=== PATIENT | female | born 1975 | race Caucasian/White ===

== ENCOUNTER 2018-07-01 15:00 | Outpatient (RCR) ==
--- NOTE | 2018-06-28 08:53 | RS.OPPTEV2 ---
Date of Note: 06/27/18 Visit #: 1 Date of Evaluation: 06/27/18 Payer Source: Medicaid Treatment Diagnosis: Left knee pain History of Condition/Mechanism of Injury:: Patient reports progressive left knee pain. History includes club foot and constriction band syndrome at and multiple surgeries to the LE's. States pain had recently gotten bad over the last four months. Prior Level of Function.....Patient was independent with: ADL's, Self Care, Work /Vocation, Caregiving, Ambulation/Mobility, Community Integration/Access Functional Limitations: Standing, Squatting, Ambulation, Community Access/ Integration Current Subjective/complaints:: Patient reports progressive left knee pain. Reports pain in the knee and ankle of the left LE. During ambulation, patient states the left knee and ankle feel like they are seperating and then come back together. 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 States left LE is shorter than the right. She decribes left knee pain at rest, with weight bearing, and it will also wake her at night. 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 She reports increased pain with activity. Treatment Side (optional): Left Medical History Surgical History Comments:: Repair of congential club foot left. C clamps to the right LE to inhibit growth ( worked there way out) Hx Home Medications: Losartan,mobic,asprin Patient's Goals: Her goal is to get some relief of left knee pain. Pain Assessment - Pain Description Pain Location: Left leg, knee/ankle Current Pain Intensity: 4/10 Worst Pain Intensity: 10/10 Functional Outcome Measure LE Functional Scale: 43 (43/80=46% impairment) - G Codes & Severity Modifier G Codes & Modifier: NA Source of G Code score: NA Observation - Observation Inspection: right hand with defects from congential constriction band syndrome. Left LE is shorter in length compared to the right. Left foot is significant smaller and narrow compared to the right foot. In standing, demonstrates valgus of the ankle joint. Bilateral LE's demonstrate healed incisions from past surgeries. Gait - Gait Pattern Gait Comments: Patient ambulates without an assistive device. Demonstrates decreased stance on the Left LE. Demonstrates absent push off at terminal stance phase on the left LE. Patient vaults on the right LE. - Left Knee ROM Left Knee Extension: full extension Left Knee Flexion: 104 (degrees AROM) Knee ROM Limitations: Soft Tissue Tightness, Pain - Right Knee ROM Right Knee Extension: full extension Right Knee Flexion: 124 (degrees AROM) - Left Knee Strength Left Knee Extension: 4 Good Left Knee Flexion: 4 Good Comments: Left hip 4+/5 - Right Knee Strength Right Knee Extension: 5 Normal Right Knee Flexion: 5 Normal Comments: right hip 4+/5 - Left Ankle ROM Left DF with Knee extension: to neutral Left Plantar Flexion: 20 (degrees AROM) Left Eversion: 5 (degrees AROM) Left Inversion: 5 (degrees AROM) Left Ankle/Foot ROM Limitations: Soft Tissue Tightness, Muscle Weakness - Right Ankle ROM Right DF with Knee extension: 15 degrees Right Plantarflexion: 50 (degrees AROM) - Left Ankle Strength Left Dorsiflexion: 4- Good- Left Plantar flexion: 3+ Fair+ Left Eversion: 3+ Fair+ Left Inversion: 3+ Fair+ - Right Ankle Strength Right Dorsiflexion: 5 Normal Right Plantarflexion: 5 Normal Right Eversion: 5 Normal Right Inversion: 5 Normal Palpation Comments:: Patient reports no specific point of pain. No tenderness with palpation or compression to the patella. Also no tenderness with palpation along the joint line or posterior aspect of the knee joint. Demonstrates no palpable swelling. Sensation - Sensation Right Lower Extremity: Intact/Normal Left Lower Extremity: Impaired Comments: Describes absent sensation to light touch or cold/hot, starting at the incision that is approximately 2 inches below the joint line, and extending to the toes. Reports intact sensation to deep pressure. Additional Comments: Additional Comments: SLR in supine to 70 Degrees bilaterally. Interventions - Exercise/Activities/Manual Therapy Exercises/Activities: None given today. Discussed leg length difference and the need for her to have it addressed. Patient demonstrates understanding. Manual Therapy: NA - Charges Timed Code Treatment Minutes: 0 mins Total Treatment Time: 48 mins Procedures billed for this date of service:: EVAL Medium EVALUATION COMPLEXITY LEVEL EVALUATION COMPLEXITY LEVEL: HISTORY: Medium (Hx congenital club foot & constriction band syndrome, multiple sx's to both knees and left ankle, leg length discrepancy), EXAM OF BODY SYSTEMS: Medium, CLINICAL PRESENTATION: Medium , CLINICAL DECISION MAKING: Medium Assessment Assessment: Patient presents to therapy with a diagnosis of left knee osteoarthritis. She reports progressive knee and ankle pain. She exhibits weakness in the left leg and decreased AROM of knee flexion. She also exhibits hypomobility of the left ankle joint, which has to be compensated for in the left knee and hip. She displays a significant leg length discrepancy, with the left LE being shorter. She displayed understanding of the importance of addressing the discrepancy. Stretching and joint mobilization to the left knee and ankle should improve mobility. Strengthening exercises will help with joint stability and may decrease her pain with activity. Patient Education: Education of diagnosis, Body/Joint mechanics, Home Exercise Program, Home Safety, Activity Modification, Education of Plan of Care Rehab Potential: Good Short Term Goals Goal #1: Patient independent and compliant in HEP. Goal to be met by: 07/11/18 Goal #2: Left knee active flexion to 110 degrees. Goal to be met by: 07/11/18 Goal #3: Left knee strength 4+/5. Goal to be met by: 07/11/18 Goal #4: Left ankle DF to 10 degrees. Goal to be met by: 07/11/18 Intermediate Goals Goal #1: Pt knows HEP and to continue ex's to maintain level of function at D/C. Goal to be met by: 08/01/18 Goal #2: Score on LE functional scale improved to <30% impairment. Goal to be met by: 08/01/18 Goal #3: Patient to report minimal left knee pain with activity and rest. Goal to be met by: 08/01/18 Plan - Treatment to be Provided Procedures: Therapeutic Exercises, Therapeutic Activity, Manual Therapy (Joint mobilizations), Patient Education Modalities: Ultrasound/Phonophoresis, Cryotherapy, Hot Packs - Treatment Plan Frequency: 3 X week Duration: 4 weeks ORDER # VISITS AND/OR THROUGH DATE: 08/01/18 - Treatment Code (1) Left knee pain Code(s): M25.562 - PAIN IN LEFT KNEE Qualifiers: Chronicity: acute Qualified Code(s): M25.562 - Pain in left knee (2) Gait abnormality Code(s): R26.9 - UNSPECIFIED ABNORMALITIES OF GAIT AND MOBILITY Comments: R26.9 (3) Leg length discrepancy Code(s): M21.70 - UNEQUAL LIMB LENGTH (ACQUIRED), UNSPECIFIED SITE Comments: M21.70 (4) Primary osteoarthritis Code(s): M19.91 - PRIMARY OSTEOARTHRITIS, UNSPECIFIED SITE Qualifiers: Osteoarthritis location: knee Laterality: left Qualified Code(s): M17.12 - Unilateral primary osteoarthritis, left knee
--- NOTE | 2018-07-01 16:02 | RS.OPPTDN ---
Subjective Date of Note: 07/01/18 Visit #: 2 Date of Evaluation: 06/27/18 Payer Source: Medicaid Treatment Diagnosis: Left knee pain Current Subjective/complaints:: Patient reports pain in the left knee especially at the popliteal area. Reports pain is sometimes from hip to knee. Reports feels good following treatment and exercise. Pain Assessment - Pain Description Pain Description: Tightness, Aching Current Pain Intensity: mild to mod - Treatment Modality: Ultrasound Parameters/Method Applied: [id number] 1.5w/cm2 to the left knee around patella and over the popliteal surface prior to EX. Patient Position: Supine Interventions - Exercise/Activities/Manual Therapy Exercises/Activities: Assisted stretching of bilateral HS and piriformis but focus on left side. Left heel cord and SKTC stretch. Pelvic tilt. Bridging. Isometric hip add and isometric ankle inversion. Left SLR. Patient education on leg length and need to work on MET's. Patient given copies of HEP. Total minutes of Exercise: 32mins Manual Therapy: NA HOME EXERCISE PROGRAM: Bridge, SLR, HS stretch, piriformis, isometric hip add. - Charges Timed Code Treatment Minutes: 44mins Total Treatment Time: 44mins Procedures billed for this date of service:: US, EX2 Assessment: Patient attentive and seems to be motivated to progress. Patient Education: Education of diagnosis, Body/Joint mechanics, Home Exercise Program, Home Safety, Activity Modification Comments: Patient education on catuion with work activities and good body mechanics. Patient demonstrates compliance with HEP?: Yes Short Term Goals Goal #1: Patient independent and compliant in HEP. Goal to be met by: 07/11/18 Progress towards Goal:: Progressing Goal #2: Left knee active flexion to 110 degrees. Goal to be met by: 07/11/18 Progress towards Goal:: Met Goal #3: Left knee strength 4+/5. Goal to be met by: 07/11/18 Goal #4: Left ankle DF to 10 degrees. Goal to be met by: 07/11/18 [employer] Specialist Goals Goal #1: Pt knows HEP and to continue ex's to maintain level of function at D/C. Goal to be met by: 08/01/18 Goal #2: Score on LE functional scale improved to <30% impairment. Goal to be met by: 08/01/18 Goal #3: Patient to report minimal left knee pain with activity and rest. Goal to be met by: 08/01/18 Plan PLAN OF CARE EXPIRES ON:: 08/01/18 ORDER # VISITS AND/OR THROUGH DATE: 08/01/18 PLAN: Comtinue modalities and exercise to reduce pain increase functional activity level.
--- NOTE | 2018-07-08 15:40 | RS.CXNS ---
Date of scheduled appointment: 07/08/18 Type: Cancel (Patient calls to cancel appointment. States her leg is hurting her today.)
--- NOTE | 2018-07-15 16:04 | RS.CXNS ---
Date of scheduled appointment: 07/12/18 Type: Cancel (Patient called to cancel, no reason given.)
--- NOTE | 2018-07-15 16:05 | RS.CXNS ---
Date of scheduled appointment: 07/15/18 Type: No Show (No contact from patient. She has missed 3 appointment and will be discharged.)
--- NOTE | 2018-07-15 16:06 | RS.QUICKDC ---
Discharge from PT Date of Discharge: 07/15/18 Number of Visits: 2 Reason for Discharge: Patient attended the Evaluation and only one regular visit. She then cancelled 2 appointments and no showed the last scheduled appointment. Discharge at this time due to lack of attendance.
== END 2018-07-15 23:59 ==
PROVIDERS: ATTEND Orthopaedic Surgery
DX: M17.12 Unilateral primary osteoarthritis, left knee (principal)

== ENCOUNTER 2018-07-20 13:21 | Outpatient (CLI) ==
--- NOTE | 2018-07-20 13:52 | DI ---
EXAM: Four views of the right knee. History: Right knee pain. Findings: No acute fracture or dislocation. No abnormal calcifications or radiopaque foreign bodies . Joint spaces are preserved. Impression: Unremarkable exam
== END 2018-07-20 13:22 | disposition home or self-care (01) ==
LOC: RAD 13:21
PROVIDERS: ATTEND Nurse Practitioner Family
DX: M25.561 Pain in right knee (principal)

== ENCOUNTER 2019-01-22 11:32 | Emergency (ER) ==
[2019-01-22 11:38] VITALS: BP 155/81; TEMP 99.9; BMI 42.1
--- NOTE | 2019-01-22 12:13 | ED.PDOC ---
General ED Provider: Dr. AROLDO TYLER Chief Complaint: Respiratory Complaint Stated Complaint: on Z-JAMES from her doctor but chest burning and inecetive cough feels ill Time Seen by Physician: 11:05 Mode of Arrival: Walk-In Information Source: Patient Exam Limitations: No limitations Primary Care Provider: MAY JIM Nursing and Triage Documentation Reviewed and Agree: Yes Does patient meet sepsis criteria?: No System Inflammatory Response Syndrome: Not Applicable Sepsis Protocol: For patient's 13 years and over: Temp is 96.8 and below OR 101 and greater Pulse >90 BPM Resp >20/minute Acutely Altered Mental Status Are patient's symptoms suggestive of a new infection, such as: -Pneumonia -Skin, Soft Tissue -Endocarditis -UTI -Bone, Joint Infection -Implantable Device -Acute Abdominal Infection -Wound Infection -Meningitis -Blood Stream Catheter Infection -Unknown Respiratory Complaint Exam - Respiratory Complaint/Exam Onset/Duration: 4 days Symptoms Are: Still present Timing: Intermittent Initial Severity: Moderate Current Severity: None Location: Unknown Character: Reports: Dry cough Aggravating: Reports: Weather Alleviating: Reports: None Associated Signs and Symptoms: Reports: Fever, Increased thirst History of Healthcare-Acquired Pneumonia: No Related Surgical History: Reports: None Pulmonary Embolism Risk Factors: None Cardiac Risk Factors: Reports: None Pseudomonas Risk Factors: Reports: None Tuberculosis Risk Factors: Reports: None Status Asthmaticus Risk Factors: Reports: None Home Oxygen Use: No Recent Stress Test: No Current Antibiotic Use: Yes (Azithomycin) Current Asthma Medication Use: No Respiratory Distress: None Inadequate Respiratory Effort: No Dysphagia Present: No Stridor Present: No JVD Present: No Accessory Muscle Use: No Retractions: Not Present Diminished Breath Sounds: No Sinus Tenderness: None Grunting Respirations: No Kussmaul Respirations: No Differential Diagnoses: Asthma Review of Systems - Review Of Systems Constitutional: Reports: Fever Eyes: Reports: No symptoms Ears, Nose, Mouth, Throat: Reports: No symptoms Respiratory: Reports: Other Cardiac: Reports: No symptoms GI: Reports: No symptoms, Diarrhea : Reports: No symptoms Musculoskeletal: Reports: No symptoms Skin: Reports: No symptoms Neurological: Reports: No symptoms Endocrine: Reports: No symptoms Hematologic/Lymphatic: Reports: No symptoms All Other Systems: Reviewed and Negative Past Medical History - Past Medical History Previously Healthy: Yes Endocrine: Reports: None Cardiovascular: Reports: None Respiratory: Reports: None Hematological: Reports: None Gastrointestinal: Reports: None Genitourinary: Reports: None Neuro/Psych: Reports: None Musculoskeletal: Reports: None Cancer: Reports: None Last Menstrual Period: now - Surgical History General Surgical History: Reports: None - Family History Family History: Reports: None - Social History Smoking Status: Never smoker Hx Substance Use: No Alcohol Screening: None - Immunizations Tetanus Shot up to Date: Yes Influenza Vaccine within 12 Months: No Pneumococcal Vaccine up to Date: No Physical Exam - Physical Exam Appearance: Well-appearing Ill-appearing: Mild Pain Distress: None Eyes: ROX ENT: Ears normal Respiratory: Airway patent Cardiovascular: RRR GI/: Soft Musculoskeletal: Normal strength Skin: Warm Neurological: Sensation intact Critical Care Note - Critical Care Note Total Time (mins): 0 Course - Course Hematology/Chemistry: 01/22/19 12:35 Orders, Labs, Meds: Lab Review 01/22/19 01/22/19 11:50 12:35 WBC 3.97 L RBC 4.19 L Hgb 12.5 Hct 38.7 MCV 92.4 MCH 29.8 MCHC 32.3 RDW Coeff of Naldo 15.0 H Plt Count 298 Immature Gran % (Auto) 0.3 Neut % (Auto) 53.3 Lymph % (Auto) 33.2 [place] % (Auto) 11.1 H Eos % (Auto) 1.8 Baso % (Auto) 0.3 Immature Gran # (Auto) 0.0 Neut # (Auto) 2.1 Lymph # (Auto) 1.3 [place] # (Auto) 0.4 Eos # (Auto) 0.1 Baso # (Auto) 0.0 Influ A Molecular Assay Positive by naat H Influ B Molecular Assay Negative by naat Orders Category Date Time Status NEBULIZER TREATMENT Stat CARDIO 01/22/19 12:52 Completed CBC W/ AUTO DIFF Stat LAB 01/22/19 12:35 Completed FLU A/B MOLECULAR Stat LAB 01/22/19 11:50 Completed RAPID STREP SCREEN [MOLECULAR GROUP A STREP] Stat LAB 01/22/19 11:50 Completed Albuterol Sulfate 0.083% Neb [Albuterol 0.083% Neb] MEDS 01/22/19 12:20 Discontinued 1 vial NEB ONCE STA Levalbuterol HCl [Xopenex 1.25 mg] MEDS 01/22/19 12:51 Discontinued 1 vial NEB ONCE STA CHEST, 2 VIEWS PA & LAT Stat RADS 01/22/19 12:21 Completed CHEST, 2 VIEWS PA & LAT Stat RADS 01/22/19 12:52 Stop Req Medications Discontinued Medications Generic Name Dose Route Start Last Admin Trade Name Anupam PRN Reason Stop Dose Admin Albuterol Sulfate 1 vial 01/22/19 12:20 01/22/19 12:45 Albuterol 0.083% Neb NEB 01/22/19 12:21 Not Given ONCE STA Levalbuterol HCl 1 vial 01/22/19 12:51 01/22/19 12:56 Xopenex 1.25 Mg NEB 01/22/19 12:52 1 vial ONCE STA Administration Vital Signs: Temp Pulse Resp BP Pulse Ox 01/22/19 11:32 99.9 F H 91 H 20 155/81 H 95 Departure - Departure Time of Disposition: 13:51 Disposition: HOME SELF-CARE Discharge Problem: Fever and chills Instructions: Fever in Adults (ED) Condition: Good Pt referred to PMD for follow-up: No (Follow with int med.-hematology within 2 wks.) IPMP verified?: No Additional Instructions: Take Bactrim as directed. return to ER if not better within 3 days. Allergies/Adverse Reactions: Allergies codeine Adverse Reaction (Verified 01/22/19 11:38) Penicillins Adverse Reaction (Verified 01/22/19 11:38) Home Medications: Ambulatory Orders Losartan/Hydrochlorothiazide [Losartan-Hctz 100-25 mg Tab] 1 each PO DAILY 01/22 Disposition Discussed With: Patient
[2019-01-22] MEDS ORDERED: ALBUTEROL 0.083% NEB NEB STA (12:20)
[2019-01-22] MEDS ORDERED: XOPENEX 1.25 MG NEB STA (12:51)
--- NOTE | 2019-01-22 12:51 | DI ---
EXAM: Two views of the chest. History: Persistent cough. Comparison: Chest radiograph 08/08/2010 Findings: Heart size is normal. No focal consolidation. No appreciable pleural fluid and no pneumo thorax. No acute osseous abnormalities. Impression: No acute cardiopulmonary process
== END 2019-01-22 14:24 | disposition home or self-care (01) ==
LOC: ED 11:32
DX: J11.1 Influenza due to unidentified influenza virus with other respiratory manifestations (principal); J02.0 Streptococcal pharyngitis
CPT/HCPCS: 36415; 85025; 87502; 87651; 94640; 99283

== ENCOUNTER 2019-01-31 10:17 | Outpatient (CLI) ==
--- NOTE | 2019-01-31 11:36 | DI ---
EXAM: Two views of the right hip. History: Right hip pain. Findings: No acute fracture or dislocation. The right hip joint space is preserved. No radiopaque foreign bodies. Impression: No acute osseous abnormality
--- NOTE | 2019-01-31 11:38 | DI ---
EXAM: Single view of the pelvis. History: Pelvic pain. Findings: No acute fracture or dislocation. Bilateral hip joint spaces are preserved. No abnormal calcifications or radiopaque foreign bodies. Impression: No acute osseous abnormality
--- NOTE | 2019-01-31 12:13 | DI ---
EXAM: Three views of the lumbar spine. History: Lower back pain. Findings: No acute fracture or subluxation of the lumbar spine. Mild multilevel disc space narrowin g of the lumbar spine with a few small osteophytes. There is moderate facet hypertrophy at L5-S1. Impression: 1. No acute osseous abnormality of the lumbar spine. 2. Mild degenerative disc disease. 3. Moderate facet hypertrophy at L5-S1
== END 2019-01-31 10:18 | disposition home or self-care (01) ==
LOC: RAD 10:17
PROVIDERS: ATTEND Nurse Practitioner Family
DX: M54.5 Low back pain (principal); M25.551 Pain in right hip